=== PATIENT | male | born 1950 | race Two or more races ===

== ENCOUNTER 2021-10-18 09:45 | Inpatient (IN) | payer OTHER ==
[~2021-10-18] VITALS: Ht 175.3 cm; Wt 98.0 kg
[2021-10-18] MEDS ORDERED: TERAZOSIN HCL10 MG PO (10:43)
[2021-10-18] MEDS ORDERED: ATORVASTATIN CA20 MG PO (10:43)
[2021-10-18] MEDS ORDERED: LOSARTAN-HCTZ1 EAC1 PO (10:43)
[2021-10-23] MEDS ORDERED: DICLOFENAC SODI75 MG (08:01)
[2021-10-23] MEDS ORDERED: LATANOPROST2.5 ML (08:01)
[2021-10-25] MEDS ORDERED: BACTRIM DS TAB1 EACH PO (08:03)
[2021-10-25] MEDS ORDERED: XARELTO10 MG PO (08:03)
[2021-10-25] MEDS ORDERED: INTEGRA PLUS C1 EACH PO (08:03)
[2021-10-25] MEDS ORDERED: OXYC1TAB9 PO (08:03)
== END 2021-10-25 14:44 | DRG 470 ==
LOC: SURH 10-23 05:20 → O/R 10-23 05:20 → SURH 10-23 07:00
PROVIDERS: ADMIT Orthopaedic Surgery Sports Medicine; ATTEND Orthopaedic Surgery Sports Medicine
PROC: 0SRD0J9 Replacement of Left Knee Joint with Synthetic Substitute, Cemented, Open Approach (ICD-10-PCS; principal; 2021-10-23 07:00)
DX: M17.12 Unilateral primary osteoarthritis, left knee (principal); I10 Essential (primary) hypertension; E78.49 Other hyperlipidemia; Z20.822 Contact with and (suspected) exposure to COVID-19

== ENCOUNTER 2023-04-03 07:26 | Outpatient (CLI) | payer OTHER ==
[~2023-04-03 07:26] MED LIST: ATORVASTATIN CA20 MG PO; BACTRIM DS TAB1 EACH PO; DICLOFENAC SODI75 MG; INTEGRA PLUS C1 EACH PO; LATANOPROST2.5 ML; LOSARTAN-HCTZ1 EAC1 PO; OXYC1TAB9 PO; TERAZOSIN HCL10 MG PO; XARELTO10 MG PO
== END 2023-04-03 07:36 | disposition home or self-care (01) ==
LOC: TOM 07:26
PROVIDERS: ATTEND Student in an Organized Health Care Education/Training Program
DX: Z12.11 Encounter for screening for malignant neoplasm of colon (principal)